=== PATIENT | female | born 1985 | race African-American/Black ===

== ENCOUNTER 2019-02-23 08:55 | Emergency (ER) | payer MEDICAID, OTHER ==
[~2019-02-23] VITALS: Ht 175.3 cm; Wt 58.0 kg
[2019-02-23 08:58] VITALS: BP 103/56
== END 2019-02-23 11:53 | disposition left against medical advice (07) ==
LOC: ER 09:11
DX: Z53.21 Procedure and treatment not carried out due to patient leaving prior to being seen by health care provider (principal)